=== PATIENT | male | born 1965 | race Caucasian/White ===

== ENCOUNTER → 2020-09-05 14:00 | Outpatient (CLI) | payer BC, SELFPAY ==
--- NOTE | 2020-09-05 14:04 | CA_ITS ---
APPROVED REPORT EXAM: Comprehensive 2D, Doppler, and color-flow Echocardiogram Latent Print Examiner: Mitra Larson CRT Ht: 6 ft 3 in Wt: 186lbs BSA: 2.13 BP: 141/97 mmHg Indications: Hyperlipidemia, Hypertension/HDD, PVC'c, Bradycardia, abn EKG 2D Dimensions LVOT 2.19 cm (M/F) 1.5-2.5 M-Mode Dimensions RVDd 2.77 cm (0.9-2.6) LA Diam 4.27 cm (1.9-4.0) LVDd 7.74 cm (3.5-5.7) Ao Diam 4.16 cm (2.0-3.7) LVDs 5.88 cm (3.5-5.7) IVSd 1.37 cm (0.6-1.1) PWd 0.53 cm (0.6-1.1) EF (Teich) 46.30% FS 24.00% EDV (Teich) 320.10 mL ESV (Teich) 171.90 mL LV Diastology E Decel Time 83.00 (160-240 msec) E/A Ratio 0.59 MED E' 4.40 (< 7 cm/sec) E'/MED E' Ratio 11.75 (>14) LAT E' 8.00 (<10 cm/sec) E/LAT E' Ratio 6.46 (>14) Aortic Valve AO Peak GR. 8.40 mmHg Mitral Valve MV A Velocity 88.00 (40-130 cm/s) E/A Ratio 0.59 MV Decel. Time 83.00 (160-240 ms) Tricuspid Valve TR P. Velocity 163.00 cm/s RAP Estimate 10.00 mmHg RVSP 20.60 mmHg Left Ventricle Left atrium is mildly enlarged, left ventricle is mildly dilated, visually estimated ejection fraction 40%, there is left ventricular global hypokinesis. Grade 1 diastolic dysfunction seen without tissue Doppler evidence of raise left atrial pressure. Right Ventricle Right atrium and right ventricle are normal size and contractility. Aortic Valve Aortic valve is grossly normal, there is no aortic stenosis or aortic insufficiency. Mitral Valve Mitral valve is grossly normal, there is mild mitral regurgitation. Tricuspid Valve Tricuspid valve is grossly normal, there is trace tricuspid regurgitation, tricuspid regurgitation jet velocity is inadequate for calculation of the right ventricular systolic pressure. Pulmonic Valve Pulmonic valve is poorly visualized. Great Vessels Aortic root is normal size. Pericardium No significant pericardial effusion noted. Conclusion 1. Mildly enlarged left atrium, mildly dilated left ventricle, visually estimated ejection fraction 40% left ventricle is globally hypokinetic, grade 1 diastolic dysfunction seen without tissue Doppler evidence of raise left atrial pressure. 2. Mild mitral and trace tricuspid regurgitation. 3. No significant pericardial effusion noted. Electronically signed by : Ben Laws, 09/06/2020 06:30:22
== END ==
PROVIDERS: Visit Provider Internal Medicine
DX: I49.3 Ventricular premature depolarization (principal); I10 Essential (primary) hypertension; R94.31 Abnormal electrocardiogram [ECG] [EKG]
CPT/HCPCS: 93225; 93306

== ENCOUNTER → 2020-09-05 14:13 | Outpatient (CLI) | payer SELFPAY ==
--- NOTE | 2020-09-05 14:52 | CT_ITS ---
PROCEDURE: CT HEART W CALCIUM SCORE CLINICAL HISTORY: screening for heart disease FAMILY HX HTN COMPARISON: No exams were available for comparison TECHNIQUE: Axial images obtained with sagittal and coronal reformats. All CT scans at the facility use one or more dose reduction, viz: automated exposure control, ma/kV adjustment per patient size (including targeted exams where dose is matched to indication, i.e. head), or iterative reconstruction technique. FINDINGS: Coronary artery calcium score is 0 No identifiable calcific atherosclerotic plaque with very low cardiovascular disease risk. Incidental note is made of a small pericardial effusion. Small nodes are present within the mediastinum. Erratic heart rate of the patient cause some skip artifact. IMPRESSION: No identifiable calcific atherosclerotic plaque with very low cardiovascular disease risk Small pericardial effusion with scattered small mediastinal lymph nodes. Dictated by: Kendell Mancini MD 09/06/2020 09:43 Kendell Mancini MD in [place] 09/06/2020 09:43
== END ==
PROVIDERS: Visit Provider Internal Medicine
DX: Z13.6 Encounter for screening for cardiovascular disorders (principal); I10 Essential (primary) hypertension; I49.3 Ventricular premature depolarization; R94.31 Abnormal electrocardiogram [ECG] [EKG]
CPT/HCPCS: 75571

== ENCOUNTER → 2020-09-05 16:08 | Outpatient (CLI) | payer BC, SELFPAY ==
[2020-09-05 17:04] LABS: Basophils # 0.1 K/mm3 (0-0.2); Eosinophils # 0.1 K/mm3 (0.0-0.4); Eosinophils % 2.2 % (0.1-12.0); Hematocrit 47.2 % (42.0-52.0); Hemoglobin 16.2 g/dL (14.1-18.0); Lymphocytes # 2.1 K/mm3 (0.7-4.5); Lymphocytes % 40.3 % (10-50); Mean Corpuscular HGB Conc 34.3 g/dL (31.8-35.4); Mean Corpuscular Hemoglobin 32.9 pg (27.0-31.2); Mean Corpuscular Volume 95.8 fl (80-94); Mean Platelet Volume 7.5 fl (7.4-10.4); Monocytes # 0.3 K/mm3 (0.1-1.0); Monocytes % 5.1 % (1.7-9.3); Neutrophils # 2.7 K/mm3 (1.8-7.8); Neutrophils % 51.4 % (37.0-80.0); Platelet Count 270 K/mm3 (142-424); Red Blood Count 4.93 M/mm3 (4.60-6.20); Red Cell Distribution Width 13.1 % (11.5-17.5); White Blood Count 5.2 K/mm3 (4.8-10.8)
[2020-09-05 17:38] LABS: Alanine Aminotransferase 18 U/L (12-78); Albumin Level 4.6 g/dl (3.5-5.0); Alkaline Phosphatase 96 U/L (38-126); Anion Gap 14.5 mEq/L (5-15); Aspartate Amino Transferase 26 U/L (17-59); Bilirubin,Direct 0.2 mg/dl (0.0-0.4); Bilirubin,Indirect 0.7 mg/dL (0.0-0.9); Bilirubin,Total 0.9 mg/dl (0.2-1.3); Bilirubin,Unconjugated 0.7 mg/dL (0.0-1.1); Blood Urea Nitrogen 13 mg/dl (9-20); Calcium 10.2 mg/dl (8.4-10.2); Carbon Dioxide 29 mmol/L (22.0-30.0); Chloride 100 mmol/L (98-107); Chol/HDL Ratio 2.2 (1-3.5); Cholesterol 225 mg/dl (140-200); Estimated Glomerular Filt Rate 101 ml/min (>60); GFR (African American) 122 ML/MIN (>60); Glucose 101 mg/dl (74-100); HDL Cholesterol 102 mg/dl (40-60); Magnesium 1.8 mg/dl (1.6-2.3); Potassium 4.5 mmoL/L (3.5-5.1); Sodium 139 mmol/L (136-145); Total Protein,Serum 7.2 g/dl (6.3-8.2); Triglycerides 65 mg/dl (30-150); VLDL Cholesterol 13 mg/dL (0-40)
[2020-09-05 17:47] LABS: NT Pro Brain Natriuretic Pep. 337 pg/mL (0-125)
[2020-09-05 17:50] LABS: Direct LDL Cholesterol 99.43 mg/dL (100-129)
[2020-09-05 17:55] LABS: Free T4 (Free Thyroxine) 1.37 ng/dl (0.78-2.19)
[2020-09-05 18:09] LABS: Thyroid Stimulating Hormone 1.77 uIU/mL (0.465-4.68)
[2020-09-12 15:15] LABS: Phosphatidylethanol (PEth) 128 ng/mL (NEGATIVE)
== END ==
PROVIDERS: Visit Provider Internal Medicine
DX: I49.3 Ventricular premature depolarization (principal); R00.1 Bradycardia, unspecified; R94.31 Abnormal electrocardiogram [ECG] [EKG]; I10 Essential (primary) hypertension
CPT/HCPCS: 36415; 80048; 80061; 80076; 80321; 83735; 83880; 84439; 84443; 85025

== ENCOUNTER 2020-09-08 13:01 | Inpatient (IN) | payer BC, SELFPAY ==
[2020-09-08 13:48] VITALS: BP 143/87; PULSE 59; RESP 18; TEMP 36.8; O2SAT 99; BMI 21.8
--- NOTE | 2020-09-08 13:48 | P.PN_ITS ---
Subjective Date: 09/08/20 Time: 13:49 Principal diagnosis: Dilated CM, Tachy-ian syndrome, Sleep Apnea Interval history: 55-year-old white male seen in the office today for test results. Patient recently was referred to us by his ENT (brother with history of non-tobacco related squamous cell carcinoma) for low heart rate. Holter monitor has revealed evidence of nonsustained ventricular tachycardia along with frequent PVCs and 2 separate 7-1/2-second sinus pause events during the nighttime on 09/06/2020. Echocardiogram today reviewed by Dr. ENGLISH and Dr. Perkins show evidence of reduced ejection fraction with dilated left ventricle. Patient does have a history of alcohol use but no history of coronary artery disease. After speaking with Dr. Florencio Umanzor ([facility] in [place], [place]) regarding the patient's findings and it was recommended that the patient be admitted for continuous telemetry monitoring, undergo a left heart catheterization as well as an overnight oximetry study for further evaluation prior to transfer for EP evaluation. It is suspected that the tachybradycardia syndrome and cardiomyopathy are related to his undiagnosed and untreated sleep apnea and/or alcohol use. Patient was started on bisoprolol at his initial visit on 09/05/2020 and was taking it while wearing the 48-hour Holter monitor showing nonsustained V. tach and 7.5-second pauses x2. Exam - Constitutional no acute distress - *Routine HEENT Exam Head: Present: normocephalic Eye: Present: EOMI, PERRL ENT: Present: mucous membranes moist - *Routine Neck Exam Present: supple. Absent: lymphadenopathy - *Routine Respiratory Exam Present: CTA bilaterally - *Routine Cardiovascular Exam Present: RRR - *Routine Abdominal Exam Present: soft, normoactive bowel sounds. Absent: tenderness - *Routine Extremities Exam Absent: cyanosis, clubbing, edema - *Routine Skin Exam Present: warm. Absent: rash - *Routine Neurological Exam Present: alert, oriented X3 Progress Note: A&P (1) Sick sinus syndrome Status: Acute (2) Abnormal Holter exam Status: Acute (3) Cardiomyopathy Status: Acute (4) HTN (hypertension) Status: Acute (5) LINDA (obstructive sleep apnea) Status: Acute Assessment and Plan for All Diagnoses:: 1. Admission for continuous telemetry monitoring and overnight pulse oximetry monitoring. 2. Left heart catheterization tomorrow to evaluate for CAD as etiology for cardiomyopathy. Will add lisinopril to his bisoprolol. 3. Pulmonary consult for suspected central sleep apnea. Also, pt has noticed change in character of his voice and size of his tongue over the years. 4. If cardiac catheterization is unremarkable then plan will be to transfer the patient to the services of Dr. Florencio Umanzor in [place] for further evaluation of his cardiac electrical system and increased risk for SCD (sudden cardiac ).
[2020-09-08 14:25] LABS: Chloride 101 mmol/L (98-107); Potassium 4.1 mmoL/L (3.5-5.1); Sodium 139 mmol/L (136-145)
[2020-09-08 14:28] LABS: Anion Gap 9.1 mEq/L (5-15); Blood Urea Nitrogen 12 mg/dl (9-20); Calcium 9.9 mg/dl (8.4-10.2); Carbon Dioxide 33 mmol/L (22.0-30.0); Creatinine Clearance Estimated 119 mL/min (50-200); Estimated Glomerular Filt Rate 101 ml/min (>60); GFR (African American) 122 ML/MIN (>60); Glucose 111 mg/dl (74-100)
[2020-09-08 14:29] LABS: Magnesium 1.8 mg/dl (1.6-2.3)
[2020-09-08 14:45] LABS: Coronavirus 19 IgG Antibody Positive (Negative); Coronavirus 19 IgM Antibody Negative (Negative)
[2020-09-08 15:59] VITALS: BP 126/82; PULSE 54; RESP 19; TEMP 36.6; O2SAT 95
[2020-09-08 16:00] VITALS: PULSE 60
--- NOTE | 2020-09-08 17:05 | HMH.PULMCON ---
*Reason for consult:: Concern for sleep apnea and nocturnal hypoxia *History of present illness: 54-year-old male never smoker, alcoholic, no prior respiratory complaints, history suggesting of sleep apnea with snoring and witnessed apneic episodes was admitted by cardiology for asystole along with diastolic heart failure and pulmonary was called for further evaluation to determine the etiology of his diastolic heart failure and the likely possibility of his sleep apnea as the etiology. Patient is a never smoker, denies any prior respiratory complaints. Further questioning patient stated that his is getting hoarse for the last 2 years along with possible increase in size of his mandible. 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 Denies any headache, blurry vision. On this visit patient denies fevers, denies chills, denies night sweats, denies hemoptysis, denies weight loss and denies loss of appetite. [facility] History Medical History: Reports:: Arrhythmia, Cardiomyopathy, Hypertension, Palpitations Denies:: Cancer, Diabetes Mellitus Type 1, Diabetes Mellitus Type 2, Internal Pacemaker, MRSA *Have you ever received a pneumonia vaccine?: No *Have you received a flu vaccine this season?: No Other Surgeries: No: Pacemaker Amputation: No Fractures: No - *Social History Last grade of school completed: Advanced degree Smoking Status: Never smoker Alcohol Intake: current Alcohol Intake Frequency:: 0-2 drinks per day Substance Use Type: denies use *Occupational Status:: employed, disabled Household Members: spouse *Travel in the last 8 weeks: None Family Hx:: Cancer, Kidney Disease ROS - Review of Systems Review of systems:: pertinent systems reviewed and negative unless documented below - Cons Reports daytime sleepiness, Denies body ache(s), Denies chills, Denies fatigue, Denies fever(s), Denies headache(s), Denies weight gain, Denies weight loss - Eyes Denies blurry vision, Denies change in vision, Denies double vision - Card Denies chest pain, Denies chest pain at rest, Denies shortness of breath, Denies shortness of breath with activity - Resp Respiratory: Reports system reviewed and no additional complaints, except as docu - GI Gastrointestingal: Reports: system reviewed and no additional complaints, except as docu - [place] Musculoskeletal: Reports system reviewed and no additional complaints, except as docu Meds Home Medications Medication Instructions Recorded Confirmed Type lisinopril 10 mg tablet 10 mg PO DAILY tab 09/05/20 09/08/20 History Allergies Allergy/AdvReac Type Severity Reaction Status Date / Time Penicillins Allergy Mild Verified 09/08/20 11:21 Exam - Constitutional Constitutional:: no acute distress, comfortable, healthy appearing - HENMT Exam HENMT: normocephalic, atraumatic, cushingoid faces - Eye Exam Eyes:: normal appearance both eyes and related structures - Neck Exam Neck:: thyroid normal, no lymphadenopathy - Respiratory Exam Respiratory:: able to speak in complete sentences, lungs clear, normal breath sounds - Cardiovascular Exam Cardiac:: S1, S2 - GI Exam GI:: soft, no hepatosplenomegaly - Skin Exam Skin: warm, no rash, dry - Neurological Exam Neurological: alert, awake, normal cognition - Extremities Exam Extremities: no cyanosis, no clubbing, no edema Internal Medicine - CN: Reslt - Labs CBC & Chem 7: 09/08/20 13:40 Labs: BMP 09/08/20 13:40 Sodium 139 Potassium 4.1 Chloride 101 Carbon Dioxide 33 H BUN 12 Creatinine 0.80 Glucose 111 H Calcium 9.9 Assessment and Plan (1) Sick sinus syndrome Status: Acute Category: Medical Code(s): I49.5 - Sick sinus syndrome (2) Abnormal Holter exam Status: Acute Category: Medical Code(s): R94.31 - Abnormal electrocardiogram [ECG] [EKG] (3) Cardio
[2020-09-08 17:57] LABS: Adenovirus,PCR Not Detected (NotDetected); Bordetella Pertussis Not Detected (NotDetected); Chlamydophila Pneumoniae, PCR Not Detected (NotDetected); Coronavirus 229E Not Detected (NotDetected); Coronavirus NL63 Not Detected (NotDetected); Coronavirus OC43 Not Detected (NotDetected); Coronovirus HKU1,PCR Not Detected (NotDetected); Human Metapneumovirus Not Detected (NotDetected); Influenza A, PCR Not Detected (NotDetected); Influenza AH1, 2009 Not Detected (NotDetected); Influenza AH1, PCR Not Detected (NotDetected); Influenza AH3,PCR Not Detected (NotDetected); Influenza B, PCR Not Detected (NotDetected); Mycoplasma Pneumoniae, PCR Not Detected (NotDetected); Parainfluenza 1, PCR Not Detected (NotDetected); Parainfluenza 2, PCR Not Detected (NotDetected); Parainfluenza 3, PCR Not Detected (NotDetected); Parainfluenza 4, PCR Not Detected (NotDetected); Respiratory Syncytial Virus Not Detected (NotDetected); Rhinovirus/Enterovirus Not Detected (NotDetected)
[2020-09-08 20:00] VITALS: BP 132/70; PULSE 50; PULSE 56; PULSE 59; RESP 18; TEMP 36.6; O2SAT 97; O2SAT 98
--- NOTE | 2020-09-08 22:01 | PC.NURSE ---
Pt instructed/reminded of sleep study device, and to wear it at bedtime. Stated he would try his best to wear it. Pt informed he had prn medication to help him rest, states he doesn't want any at this time.
--- NOTE | 2020-09-08 22:11 | PC.NURSE ---
Pt assisted with setting up sleep apnea study device at this time.
[2020-09-09] VITALS (7 sets, daily range): BP systolic 105–130; BP diastolic 69–89; PULSE 50–66; RESP 14–21; TEMP 36.6–36.8; O2SAT 96–100; BMI 22.6
--- NOTE | 2020-09-09 04:28 | PC.NURSE ---
Pt has rested fairly well this shift. Has been up in the room independently to void. Pt has left his sleep study device in place t/o the night. Pt has had several periods of apnea during sleep, with oxygen saturations dropping into the low 80's at time. Pt oxygen quickly recovers upon wakening. Denies any CP or SOA at this time. HR has been variable with rate ranging between 38-67, pt has had periods of bradycardia as low as 34bpm. Pt has been sinus ian with frequent PVC's, some irregularity, and bigemeny on the monitor. Pt denies any symtpoms associated with this . Vs have remained stable this shift. Has not requested any medication this shift. Pt has been NPO since midnight for the scheduled heart cath at 10am. Pt advised he will need to be cleaned up and prepared for his heart cath. Consent signed an on the the chart. No acute distress noted this time, will continue to monitor.
--- NOTE | 2020-09-09 07:56 | HMH.PHAVTE ---
[facility] VTE Monitoring - Patient Demographics Admission date: 09/08/20 Report Date: 09/09/20 Time: 07:56 Allergies/Adverse Reactions: Patient Allergies Penicillins Allergy (Mild, Verified 09/08/20 11:21) Height: 1.91 m Weight: 82.355 kg Patient Problems: Current Active Problems Sick sinus syndrome (Acute) LINDA (obstructive sleep apnea) (Acute) Abnormal Holter exam (Acute) Cardiomyopathy (Acute) HTN (hypertension) (Acute) - VTE Risk Labs: VTE Related Lab Results BUN 12 mg/dl (9-20) 09/08/20 13:40 Creatinine 0.80 mg/dl (0.66-1.25) 09/08/20 13:40 Estimated Creat Clear 119 mL/min (50-200) 09/08/20 13:40 Was VTE Risk Assessment Performed: Yes VTE Score: 1 VTE Risk Level: Very Low Risk - Prophylaxis VTE Prophylaxis Ordered?: Yes Types of VTE Prophylaxis: TEDS Knee High Location of Applied Device: Bilateral Lower Extremeties
--- NOTE | 2020-09-09 07:56 | HMH.PHAINT ---
MEDICATION RECONCILIATION COMPLETED ON PATIENT USING EXTERNAL FILL HISTORY FROM PHARMACY. -MARK THOMPSON, SHIVAD
--- NOTE | 2020-09-09 08:01 | HMH.PNCARD ---
Subjective Date: 09/09/20 Time: 08:01 Principal diagnosis: Dilated CM, Tachy-ian syndrome, Sleep Apnea Interval history: 55 yo WM in bed in NAD. Telemetry shows NSR with PVC's and transient sinus ian in the high 30's during sleep. No pauses noted. Sleep study results pending. He relayed information regarding his maternal aunts/uncles that indicate possible genetic component of cardiac electrical issues with many dieing suddenly and some having pacemakers/ICD's. One brother with bundle branch block history. Exam Vital signs and Labs for Last 24 Hours: Temp Pulse Resp BP Pulse Ox 97.9 F 52 L 14 119/69 96 09/09/20 04:00 09/09/20 04:00 09/09/20 04:00 09/09/20 04:00 09/09/20 04:00 Laboratory Results - last 24 hr 09/08/20 13:40: Sodium 139, Potassium 4.1, Chloride 101, Carbon Dioxide 33 H, Anion Gap 9.1, BUN 12, Creatinine 0.80, Estimated Creat Clear 119, Estimated GFR 101, Est GFR ( Amer) 122, Glucose 111 H, Calcium 9.9, Magnesium 1.8 09/08/20 13:40: SARS-CoV-2 IgG Ab (Rapid) Positive A, SARS-CoV-2 IgM Ab (Rapid) Negative 09/08/20 17:38: Chlamy pneumoniae PCR Not detected, Adenovirus (PCR) Not detected, B. pertussis DNA (PCR) Not detected, Coronavirus OC43 (PCR) Not detected, Coronavirus HKU1 (PCR) Not detected, Coronavirus 229E (PCR) Not detected, Coronavirus NL63 (PCR) Not detected, Human Metapneumovir PCR Not detected, Influenza A (H1) PCR Not detected, Influ A (H1N1/09) PCR Not detected, Influenza A (H3) PCR Not detected, Influenza Type A (PCR) Not detected, Influenza Type B (PCR) Not detected, M. pneumoniae (PCR) Not detected, Parainfluenza 1 (PCR) Not detected, Parainfluenza 2 (PCR) Not detected, Parainfluenza 3 (PCR) Not detected, Parainfluenza 4 (PCR) Not detected, RSV (PCR) Not detected, Entero/Rhino (PCR) Not detected I & O for Last 24 hours: Intake & Output 09/06/20 09/07/20 09/08/20 09/09/20 11:59 11:59 11:59 11:59 Intake Total 240 / 240 Balance 240 / 240 Weight 181 lb 9 oz - Constitutional no acute distress - *Routine HEENT Exam Head: Present: normocephalic Eye: Present: EOMI, PERRL ENT: Present: mucous membranes moist - *Routine Neck Exam Present: supple. Absent: lymphadenopathy - *Routine Respiratory Exam Present: CTA bilaterally - *Routine Cardiovascular Exam Present: RRR - *Routine Abdominal Exam Present: soft, normoactive bowel sounds. Absent: tenderness - *Routine Extremities Exam Absent: cyanosis, clubbing, edema - *Routine Skin Exam Present: warm. Absent: rash - *Routine Neurological Exam Present: alert, oriented X3 Progress Note: A&P (1) Sick sinus syndrome Status: Acute (2) Abnormal Holter exam Status: Acute (3) Cardiomyopathy Status: Acute (4) HTN (hypertension) Status: Acute (5) LINDA (obstructive sleep apnea) Status: Acute Assessment and Plan for All Diagnoses:: 1. LHC today with further consideration of referral to EP thereafter. 2. results of sleep study and labs pending. Further recommendations to follow.
--- NOTE | 2020-09-09 10:56 | MR_ITS ---
PROCEDURE: MR HEAD/BRAIN WO/W CON CLINICAL INDICATION: Acromegaly COMPARISON: No exams were available for comparison TECHNIQUE: Routine multiplanar multi echo sequences are performed without gadolinium enhancement. FINDINGS: There is generalized motion artifact somewhat obscuring fine detail. There is a 1.8 x 1.4 cm heterogeneous mass within the pituitary gland which is isointense on T1 and the comes heterogeneously hyperintense on T2. The heterogeneous areas of increased T2 signal may be related to underlying cystic transformation. This is causing enlargement of the dorsum sella projecting down into the sella turcica. There is no evidence of impingement upon the optic chiasm. No evidence of acute infarction. No midline shift or hydrocephalus. The cerebellopontine angles, cerebellum, and brainstem have an unremarkable appearance. There is thickening of the calvarium. No mastoid effusion or sinus air-fluid level. There is mild mucosal thickening of the right maxillary sinus. IMPRESSION: 1.8 x 1.4 cm heterogeneous pituitary mass consistent with a macroadenoma as described above. Dictated by: Kendell Mancini MD 09/09/2020 13:37 Kendell Mancini MD in [place] 09/09/2020 13:37
--- NOTE | 2020-09-09 14:18 | HMH.DCSUM ---
General - General Admission date:: 09/08/20 Discharge date: 09/09/20 HPI HPI: 55-year-old white male admitted for monitoring and possible need for pacemaker due to episodes of nonsustained ventricular tachycardia combined with episodes of 7-1/2 seconds of asystole noted on 48-hour Holter monitor. Patient had an echocardiogram that revealed evidence of LV dysfunction with ejection fraction of approximately 40% (see report below). Patient does have a history of alcohol use that is increased during this Covid pandemic. There was a high level of concern for obstructive sleep apnea and patient was scheduled for sleep study evaluation. Pulmonary consult was made to Dr. Jackson for further evaluation as well. Echocardiogram results: 1. Mildly enlarged left atrium, mildly dilated left ventricle, visually estimated ejection fraction 40% left ventricle is globally hypokinetic, grade 1 diastolic dysfunction seen without tissue Doppler evidence of raise left atrial pressure. 2. Mild mitral and trace tricuspid regurgitation. 3. No significant pericardial effusion noted. Electronically signed by : Ben Laws, 09/06/2020 06:30:22 Hospital Course Hospital Course: Patient's hospital course is uncomplicated. He tolerated the bisoprolol and lisinopril overnight with no further episodes of V. tach or asystole on telemetry. His sleep study shows overall AHI of 44 with minimal SPO2 of 77% on room air. Snoring occurs 28% of the time with 18% very loud. These findings are consistent with severe, nonpositional obstructive sleep apnea. Due to features consistent with acromegaly it was recommended that he undergo MRI prior to consideration of left heart catheterization. Patient did undergo MRI of the brain without contrast which did show an 18 x 14 mm pituitary adenoma. Send out labs of growth hormone and cortisol levels were still pending at time of dictation. Results of the MRI were discussed with the patient's and recommendation was made for transfer to Dr. Lenard Lopez at for resection of his adenoma. Dr. Lopez graciously agreed to accept the patient in transfer is pending at this time. Lab work shows evidence of antibodies (IgG positive) to the Covid virus but PCR was negative for current infection. Objective Vital signs: Temp Pulse Resp BP Pulse Ox 97.8 F 61 16 127/72 97 09/09/20 08:00 09/09/20 08:00 09/09/20 08:00 09/09/20 08:00 09/09/20 08:00 no acute distress - *Routine HEENT Exam Head: Present: normocephalic Eye: Present: EOMI, PERRL ENT: Present: mucous membranes moist Comments: Coarsening of the brow noted along with enlargement of the mandible. - *Routine Neck Exam Present: supple - *Routine Respiratory Exam Present: CTA bilaterally - *Routine Cardiovascular Exam Present: RRR - *Routine Abdominal Exam Present: soft, normoactive bowel sounds. Absent: tenderness - *Routine Extremities Exam Absent: cyanosis, clubbing, edema - *Routine Skin Exam Present: warm. Absent: rash - Detailed Eye Exam Eyelids: Bilateral normal inspection Results Completed studies during hospitalization [Text1]: MRI of the brain without contrast Overnight sleep study Pending studies at discharge: Growth hormone and cortisol levels Labs on day of discharge: Labs from last 24 hours 09/08/20 09/08/20 09/08/20 17:38 13:40 13:40 Sodium 139 Potassium 4.1 Chloride 101 Carbon Dioxide 33 H Anion Gap 9.1 BUN 12 Creatinine 0.80 Estimated Creat Clear 119 Estimated GFR 101 Est GFR ( Amer) 122 Glucose 111 H Calcium 9.9 Magnesium 1.8 Chlamy pneumoniae PCR Not detected Adenovirus (PCR) Not detected B. pertussis DNA (PCR) Not detected Coronavirus OC43 (PCR) Not detected Coronavirus HKU1 (PCR) Not detected Coronavirus 229E (PCR) Not detected Coronavirus NL63 (PCR) Not detected Human Metapneumovir PCR Not detected In
--- NOTE | 2020-09-09 15:23 | HMH.PULMPN ---
Internal Medicine - PN: Subj *Date: 09/09/20 *Time: 15:23 Interval history: No acute respiratory events overnight. Exam - Constitutional Constitutional:: no acute distress, comfortable - HENMT Exam HENMT: normocephalic, moist mucous membranes - Eye Exam Eyes:: normal appearance both eyes and related structures, eyelids normal, normal conjunctiva - Neck Exam Neck:: thyroid normal, no lymphadenopathy - Respiratory Exam Respiratory:: able to speak in complete sentences, lungs clear - Cardiovascular Exam Cardiac:: regular rhythm, S1, S2 - GI Exam GI:: soft, no hepatosplenomegaly - Skin Exam Skin: warm, no rash - Neurological Exam Neurological: alert, awake, normal cognition - Extremities Exam Extremities: no cyanosis, no clubbing, no edema Assessment and Plan (1) Sick sinus syndrome Status: Acute Category: Medical Code(s): I49.5 - Sick sinus syndrome (2) Abnormal Holter exam Status: Acute Category: Medical Code(s): R94.31 - Abnormal electrocardiogram [ECG] [EKG] (3) Cardiomyopathy Status: Acute Qualifiers: Cardiomyopathy type: unspecified Qualified Code(s): I42.9 - Cardiomyopathy, unspecified Category: Medical Code(s): I42.9 - Cardiomyopathy, unspecified (4) HTN (hypertension) Status: Acute Qualifiers: Hypertension type: essential hypertension Qualified Code(s): I10 - Essential (primary) hypertension Category: Medical Code(s): I10 - Essential (primary) hypertension (5) LINDA (obstructive sleep apnea) Status: Acute Category: Medical Code(s): G47.33 - Obstructive sleep apnea (adult) (pediatric) (6) Acromegaly Status: Acute Category: Medical Code(s): E22.0 - Acromegaly and pituitary gigantism (7) Pituitary adenoma Status: Acute Category: Medical Code(s): D35.2 - Benign neoplasm of pituitary gland - Assessment and plan all Dx Assessment and Plan for all problems:: #Diastolic heart failure: #Sleep apnea: Treatment as per history as mentioned in the HPI presented to the hospital with diastolic heart failure and asystole history significant for high STOP-BANG score with high probability of sleep apnea. Patient also complains of enlarged tongue, increased size of the mandible, change in his voice along with carpal tunnel surgeries done in his both wrists 1 year ago. Significant lab abnormalities including alkalosis with elevated bicarb in his BMP along with macrocytosis with MCV of 95. Patient admits alcohol intake. Never smoker. TSH within normal limits. Blood glucose slightly elevated at 111. Patient had overnight sleep study performed however upon initial review patient did not slept more than 4 hours on the sleep study might be inconclusive but however will follow with the results and follow in the clinic. Given concerns for pituitary tumor and excess growth hormone patient had MRI performed that showed pituitary adenoma. Plan: - Follow with neurosurgery/neurology for his pituitary adenoma - Follow insulin growth factor levels and serum cortisol levels - We will follow patient in the clinic in 4 to 6 weeks with his sleep study results of nocturnal pulse oximetry results #For involving pulmonary in this patient care.
--- NOTE | 2020-09-09 19:44 | PC.NURSE ---
PT IS RESTING IN BED. NO COMPLAINTS OF DISCOMFORT. PT HAS BEEN VERY DROWSY SINCE ARRIVING BACK TO THE FLOOR AFTER MRI. VSS. PT HAS HAD SEVERAL PERIODS OF APNEA WHILE SLEEPING. ACCORDING TO PT'S THIS HAS BEEN AN ONGOING ISSUE FOR YEARS. BEFORE MRI PT RECEIVED A TOTAL OF 4 MG OF XANAX PO AND 50 MG OF BENADRYL PO PER . MULTIPLE PVC'S NOTED ON TELEMETRY. CALLED AT 1845 TO LET US KNOW THAT PT HAD A BED. ATTEMPTED TO CALL REPORT AND THEY TOOK THE NUMBER TO THE FLOOR AND STATED THE NURSES WERE IN THE MIDDLE OF SHIFT CHANGE AND THEY WOULD CALL BACK MARÍA. CALLED AND STATED HE WOULD CALL PT'S TO LET HER KNOW THAT PT WILL BE TRANSFERRED TO [facility]. REPORT HANDOFF TO UNA KEARNEY RN.
--- NOTE | 2020-09-09 21:34 | PC.NURSE ---
patient off floor per EMS at this time.
--- NOTE | 2020-09-13 12:55 | HMH.HP ---
*Admission Date: 09/08/20 *Chief complaint: abnormal holter *History of present illness: 55-year-old white male admitted for monitoring and possible need for pacemaker due to episodes of nonsustained ventricular tachycardia combined with episodes of 7-1/2 seconds of asystole noted on 48-hour Holter monitor. Patient had an echocardiogram that revealed evidence of LV dysfunction with ejection fraction of approximately 40% (see report below). Patient does have a history of alcohol use that is increased during this Covid pandemic. There was a high level of concern for obstructive sleep apnea and patient was scheduled for sleep study evaluation. Pulmonary consult was made to Dr. Jackson for further evaluation as well. Echocardiogram results: 1. Mildly enlarged left atrium, mildly dilated left ventricle, visually estimated ejection fraction 40% left ventricle is globally hypokinetic, grade 1 diastolic dysfunction seen without tissue Doppler evidence of raise left atrial pressure. 2. Mild mitral and trace tricuspid regurgitation. 3. No significant pericardial effusion noted. Electronically signed by : Ben Laws, 09/06/2020 06:30:22 [facility] History I have reviewed the patient's past medical history: Yes Medical History: Reports:: Arrhythmia, Cardiomyopathy, Hypertension, Palpitations Denies:: Cancer, Diabetes Mellitus Type 1, Diabetes Mellitus Type 2, Internal Pacemaker, MRSA *Have you ever received a pneumonia vaccine?: No *Have you received a flu vaccine this season?: No Other Surgeries: No: Pacemaker Amputation: No Fractures: No - *Social History Last grade of school completed: Advanced degree Smoking Status: Never smoker Alcohol Intake: current Alcohol Intake Frequency:: 3 or more drinks per day Substance Use Type: denies use *Occupational Status:: employed Household Members: spouse *Travel in the last 8 weeks: None Family Hx:: Cancer, Kidney Disease Review of Systems - Review of Systems Review of systems:: pertinent systems reviewed and negative unless documented below - Constitutional Reports weight loss - ENT Comments: change in voice character - *Cardiovascular Reports rapid, pounding, or irregular heartbeat - *Neurologic Denies headache(s) Meds Home Medications Medication Instructions Recorded Confirmed Type lisinopril 10 mg tablet 10 mg PO DAILY tab 09/05/20 09/08/20 History bisoproloL fumarate [Bisoprolol 5 mg PO DAILY 09/09/20 09/09/20 History Fumarate] Allergies Allergy/AdvReac Type Severity Reaction Status Date / Time Penicillins Allergy Mild Verified 09/08/20 11:21 Exam Vital signs and Labs for Last 24 Hours: Temp Pulse Resp BP Pulse Ox 98.1 F 66 16 130/80 100 09/09/20 20:00 09/09/20 20:00 09/09/20 20:00 09/09/20 20:00 09/09/20 20:00 - *Routine HEENT Exam Head: Present: normocephalic Eye: Present: EOMI, PERRL ENT: Present: mucous membranes moist Comments: macroglossia - *Routine Neck Exam Present: supple. Absent: JVD, carotid bruit - *Routine Respiratory Exam Present: CTA bilaterally. Absent: accessory muscle use, rales, rhonchi, wheezes - *Routine Cardiovascular Exam Present: RRR. Absent: murmur, gallop, rubs - *Routine Abdominal Exam Present: soft. Absent: tenderness, distended, guarding - *Routine Extremities Exam Absent: edema, calf tenderness - *Routine Skin Exam Present: warm. Absent: cyanosis - *Routine Neurological Exam Present: alert, oriented X3, moving all extremities Assessment and Plan (1) Sick sinus syndrome Status: Acute Category: Medical Code(s): I49.5 - Sick sinus syndrome (2) Abnormal Holter exam Status: Acute Category: Medical Code(s): R94.31 - Abnormal electrocardiogram [ECG] [EKG] (3) Cardiomyopathy Status: Acute Qualifiers: Cardiomyopathy type: unspecified Qualified Code(s): I42.9 - Cardiomyopathy, unspecified Category: Medical Code(s): I42.9 - Cardiomyopathy,
== END 2020-09-09 21:20 | disposition short-term general hospital (02) | DRG 644 ==
PROVIDERS: Internal Medicine Pulmonary Disease; Physician Assistant; Admitting Provider Internal Medicine; Visit Provider Internal Medicine
DX: D35.2 Benign neoplasm of pituitary gland (principal); I42.9 Cardiomyopathy, unspecified; I50.32 Chronic diastolic (congestive) heart failure; E22.0 Acromegaly and pituitary gigantism; I49.5 Sick sinus syndrome; I11.0 Hypertensive heart disease with heart failure; G47.33 Obstructive sleep apnea (adult) (pediatric); Z79.899 Other long term (current) drug therapy; Z88.0 Allergy status to penicillin
CPT/HCPCS: 36415; 70551; 80048; 82533; 82787; 83735; 86328; 87486; 87581; 87633; 87798; G0399

== ENCOUNTER 2020-10-04 12:53 | Day surgery (SDC) | payer BC, SELFPAY ==
[2020-10-04 13:04] VITALS: BMI 22.1
[2020-10-04 13:34] VITALS: BP 154/94; PULSE 68; RESP 16; TEMP 36.8; O2SAT 98
[2020-10-04 13:41] VITALS: PULSE 65
[2020-10-04 14:11] VITALS: BP 135/87; PULSE 76; PULSE 81; RESP 16; O2SAT 98
--- NOTE | 2020-10-04 14:11 | P.PCN_ITS ---
[facility] Loop Recorder Date: 10/04/20 Time: 14:11 Procedure Performed:: Implantation of loop recorder Indication:: Bradycardia, pauses greater than 3 seconds, ventricular arrhythmias Technique:: Patient was brought to the cardiac Candy Cooker Helper. After informed consent obtained, 1% lidocaine with epinephrine was used to anesthetize the site along the left anterior aspect of the chest near the sternal border. Using the preformed scalpel, an incision was made and using the supplied preloaded apparatus, the loop recorder was placed subcutaneously without difficulty. Following the deployment of the loop recorder interrogation of the device was performed to ensure appropriate voltage was being detected (0.45 mV). Once this was verified, Steri-Strips were placed over the incision and the patient was prepped to discharge home. Patient tolerated the procedure well with minimal discomfort. Impression:: Successful implantation of loop recorder Serial Number:: [employer] [id number] Serial number [id number] Plan:: Routine postop care
[2020-10-04 14:23] LABS: Coronavirus 19 IgG Antibody Positive (Negative); Coronavirus 19 IgM Antibody Negative (Negative)
[2020-10-04 15:09] LABS: Blood Urea Nitrogen 15 mg/dl (9-20); Carbon Dioxide 30 mmol/L (22.0-30.0); Chloride 103 mmol/L (98-107); Creatinine Clearance Estimated 121 mL/min (50-200); Estimated Glomerular Filt Rate 101 ml/min (>60); GFR (African American) 122 ML/MIN (>60); Glucose 127 mg/dl (74-100); Sodium 139 mmol/L (136-145)
== END 2020-10-04 14:34 | disposition home or self-care (01) ==
LOC: CATHLAB 12:56
PROVIDERS: PCP Internal Medicine; Visit Provider Internal Medicine
DX: R94.31 Abnormal electrocardiogram [ECG] [EKG] (principal); R00.1 Bradycardia, unspecified; I49.5 Sick sinus syndrome; I49.3 Ventricular premature depolarization
CPT/HCPCS: 33285; 36415; 80048; 82565; 84520; 86328

== ENCOUNTER → 2020-10-05 06:39 | Outpatient (CLI) | payer BC, SELFPAY ==
--- NOTE | 2020-10-05 06:43 | CT_ITS ---
PROCEDURE: CT ANGIO CORONARY ARTERY CLINCAL INDICATION: abnormal echo Bradycardia Abnormal echo Wall motion abnormality on recent echo COMPARISON: No exams were available for comparison TECHNIQUE: IV Contrast: 115 mL Isovue 370 Gated images are obtained per standard technique. Patient's heart rate was in the low 60s. Therefore, no medication was given to instill bradycardia. The heart rate was very erratic the current ranging in the mid 30s to the mid 60s. Axial images obtained with sagittal and coronal reformats. All CT scans at the facility use one or more dose reduction, viz: automated exposure control, ma/kV adjustment per patient size (including targeted exams where dose is matched to indication, i.e. head), or iterative reconstruction technique. FINDINGS: No anatomic variations as to the origin of the coronary arteries. The left main has an unremarkable appearance. There is a mild amount of eccentric soft plaque at the ostium/proximal LAD with approximately 30 percent stenosis. The LAD is a dominant vessel with a prominent 1st diagonal and a ramus branch noted. The circumflex is a very small vessel. The RCA is a prominent vessel as well. Mild eccentric plaque is present in the mid aspect of the RCA with approximately 30 percent stenosis. No severe stenotic lesion is evident. The RCA gives rise to posterior lateral branch to the left ventricle and to the PDA indicating right-sided dominance. There is cardiomegaly with a tricuspid aortic valve noted. There is mild ectasia ascending aorta measuring up to 3.9 cm. There is some mild atelectatic or fibrotic changes in the left lower lobe. IMPRESSION: 1. No significant stenotic lesion evident. 2. No anatomic variations as to the origin of the coronary arteries. The circumflex is a hypoplastic vessel. There is right-sided dominance. 3. Mild eccentric soft plaque with approximately 30 percent stenosis of the ostial/proximal LAD and in the mid RCA. 4. Cardiomegaly with mild ectasia of the ascending thoracic aorta at 3.9 cm Dictated by: Kendell Mancini MD 10/10/2020 09:09 Kendell Mancini MD in [place] 10/10/2020 09:09
[2020-10-05 07:17] VITALS: BMI 22.1
== END ==
PROVIDERS: PCP Family Medicine; Visit Provider Internal Medicine
DX: I42.9 Cardiomyopathy, unspecified (principal); I49.3 Ventricular premature depolarization; R93.1 Abnormal findings on diagnostic imaging of heart and coronary circulation; R94.31 Abnormal electrocardiogram [ECG] [EKG]; D35.2 Benign neoplasm of pituitary gland; E22.0 Acromegaly and pituitary gigantism; I10 Essential (primary) hypertension; G47.33 Obstructive sleep apnea (adult) (pediatric)
CPT/HCPCS: 75574; Q9967

== ENCOUNTER → 2020-11-23 08:44 | Outpatient (CLI) | payer BC, SELFPAY ==
--- NOTE | 2020-11-23 08:46 | CA_ITS ---
APPROVED REPORT EXAM: Limited 2D Echocardiogram [employer] Photographs: Veronika Jimenez, RCS, RVS Ht: 6 ft 3 in Wt: 180lbs BSA: 2.10 HR: 42 bpm BP: 147/86 mmHg Rhythm: Bradycardia Indications: Dilated CM, S/p pituitary tumor removal 2D Dimensions IVSd 0.87 cm LVDd 6.71 cm M-Mode Dimensions RVDd 3.50 cm (0.9-2.6) LVDd 6.56 cm (3.5-5.7) LVDs 5.04 cm (3.5-5.7) IVSd 1.17 cm (0.6-1.1) PWd 1.09 cm (0.6-1.1) EF (Teich) 49.80% FS 26.00% EDV (Teich) 240.00 mL ESV (Teich) 120.50 mL LV Diastology E Decel Time 310.00 (160-240 msec) E/A Ratio 0.75 MED E' 5.20 (< 7 cm/sec) MED A' 7.00 cm/s E'/MED E' Ratio 11.21 (>14) LAT E' 4.20 (<10 cm/sec) LAT A' 6.10 cm/s E/LAT E' Ratio 13.88 (>14) Mitral Valve MV A Velocity 78.00 (40-130 cm/s) E/A Ratio 0.75 MV Decel. Time 310.00 (160-240 ms) Conclusion 1. Limited 2D echocardiogram was obtained to evaluate left ventricular systolic function. 2. The left atrium is mildly enlarged, left ventricle is mildly dilated, visually estimated ejection fraction approximately 40 to 45%, there is left ventricular global hypokinesis. Doppler evidence of impaired LV relaxation seen. 3. No significant pericardial effusion noted Electronically signed by : Ben Laws, 11/24/2020 15:17:50
== END ==
PROVIDERS: PCP Family Medicine; Visit Provider Internal Medicine
DX: I42.9 Cardiomyopathy, unspecified (principal); I49.3 Ventricular premature depolarization; I10 Essential (primary) hypertension; R94.31 Abnormal electrocardiogram [ECG] [EKG]; D35.2 Benign neoplasm of pituitary gland; E22.0 Acromegaly and pituitary gigantism; G47.33 Obstructive sleep apnea (adult) (pediatric)
CPT/HCPCS: 93306

== ENCOUNTER → 2021-11-15 07:53 | Outpatient (CLI) | payer BC, SELFPAY ==
--- NOTE | 2021-11-15 07:55 | CA_ITS ---
APPROVED REPORT EXAM: Comprehensive 2D, Doppler, and color-flow Echocardiogram Hose Coupling Joiner: Carolyn Blanc RT(R) Ht: 6 ft 3 in Wt: 190lbs BSA: 2.15 BP: 132/88 mmHg Indications: ordered as a limited to assess EF post 2020, hx of pituitary tumor, bradycardia, ABN EKG. 2D Dimensions LVEF (Rodriguez's) 60.40 % M: 52 - 72 LV Volume 159.70 mL M: 62 - 150 LV Volume Index 74.62 mL/m2 M: 34 - 74 LA Volume 21.40 mL LA Volume Index 10.00 mL/m2 (M/F) 16-34 M-Mode Dimensions RVDd 2.46 cm (0.9-2.6) LA Diam 2.85 cm (1.9-4.0) LVDd 6.36 cm (3.5-5.7) Ao Diam 3.20 cm (2.0-3.7) LVDs 4.83 cm (3.5-5.7) IVSd 0.89 cm (0.6-1.1) PWd 0.72 cm (0.6-1.1) EF (Teich) 46.90% FS 24.10% EDV (Teich) 205.60 mL ESV (Teich) 109.10 mL LV Diastology E Decel Time 177.00 (160-240 msec) E/A Ratio 0.9 MED E' 10.80 (< 7 cm/sec) E'/MED E' Ratio 6.68 (>14) LAT E' 11.80 (<10 cm/sec) E/LAT E' Ratio 6.11 (>14) Mitral Valve MV E Max Shaji. 72.00 (40-130 cm/s) MV A Velocity 78.00 (40-130 cm/s) E/A Ratio 0.93 MV Decel. Time 177.00 (160-240 ms) MV PHT 52.00 ms Conclusion 1. Limited echocardiogram was performed. 2. Normal left ventricular size, estimated ejection fraction 50%, there is appears to be moderate inferior basal wall hypokinesis. 3. No significant pericardial effusion noted. Electronically signed by : Ben Laws MD 11/15/2021 19:57:51
== END ==
PROVIDERS: PCP Family Medicine; Visit Provider Internal Medicine
DX: I42.9 Cardiomyopathy, unspecified (principal); I49.3 Ventricular premature depolarization; R00.1 Bradycardia, unspecified; I10 Essential (primary) hypertension; R94.31 Abnormal electrocardiogram [ECG] [EKG]
CPT/HCPCS: 93308

== ENCOUNTER 2022-08-29 10:08 | Day surgery (SDC) | payer BC, SELFPAY ==
[2022-08-29 10:24] VITALS: BMI 23.7
[2022-08-29 11:34] VITALS: BP 132/88; PULSE 51; RESP 16; TEMP 36.9; O2SAT 100
--- NOTE | 2022-08-29 11:43 | SUR.OPER ---
stated to not give antibiotics prior to removal of loop
[2022-08-29 12:32] VITALS: BP 155/98; PULSE 50; RESP 17; O2SAT 100
[2022-08-29 12:34] VITALS: PULSE 52
--- NOTE | 2022-08-31 14:32 | P.PCN_ITS ---
[facility] Procedure Note Date: 08/29/22 Time: 12:00 Procedure Note:: Implantable loop recorder removal. Patient was brought to the Cardiac Catheterization Laboratory as an outpatient.? After informed consent obtained, lidocaine was used to anesthetize the area over the loop recorder and a surgical scalpel was used to incise down to the loop recorder.? Using forceps the loop recorder was removed without complications.? The incision was closed with surgical adhesive and covered with Steri-Strips and a pressure dressing.? Patient tolerated procedure without complications.? Routine postop care recommended.
== END 2022-08-29 12:35 | disposition home or self-care (01) ==
LOC: CATHLAB 10:10
PROVIDERS: PCP Family Medicine; Visit Provider Internal Medicine
DX: Z45.09 Encounter for adjustment and management of other cardiac device (principal); R94.31 Abnormal electrocardiogram [ECG] [EKG]; I42.9 Cardiomyopathy, unspecified; I10 Essential (primary) hypertension
CPT/HCPCS: 33286